=== PATIENT | female | born 1945 | race Two or more races ===

== ENCOUNTER 2018-08-08 09:16 | Emergency (ER) | payer OTHER ==
[~2018-08-08] VITALS: Ht 162.6 cm; Wt 104.3 kg
[2018-08-08] MEDS ORDERED: LOSARTAN-HCTZ1 EAC1 PO (09:45)
[2018-08-08] MEDS ORDERED: SINGULAIR10 MG PO (09:46)
[2018-08-08] MEDS ORDERED: XANAX2 MG PO (09:46)
[2018-08-08] MEDS ORDERED: VERAPAMIL HCL240 M1 PO (09:46)
[2018-08-08] MEDS ORDERED: SYNTHROID50 MCG PO (09:47)
[2018-08-08] MEDS ORDERED: GLYBURIDE MICRON3 MG PO (09:47)
[2018-08-08] MEDS ORDERED: PROTONIX20 MG PO (09:48)
[2018-08-08] MEDS ORDERED: NYSTATIN-TRIAMC15 GM TOP (09:48)
[2018-08-08] MEDS ORDERED: HYDROCORT-PRAMOX4 GM TOP (09:49)
[2018-08-08] MEDS ORDERED: PRAMOSONE 2.5%57 GM TOP (09:50)
== END 2018-08-08 15:07 | disposition home or self-care (01) ==
LOC: ER 09:16
DX: K64.4 Residual hemorrhoidal skin tags (principal)

== ENCOUNTER 2022-03-20 12:01 | Inpatient (IN) | payer OTHER ==
[~2022-03-20] VITALS: Ht 149.9 cm; Wt 81.6 kg
[~2022-03-20 12:01] MED LIST: GLYBURIDE MICRON3 MG PO; HYDROCORT-PRAMOX4 GM TOP; LOSARTAN-HCTZ1 EAC1 PO; NYSTATIN-TRIAMC15 GM TOP; PRAMOSONE 2.5%57 GM TOP; PROTONIX20 MG PO; SINGULAIR10 MG PO; SYNTHROID50 MCG PO; VERAPAMIL HCL240 M1 PO; XANAX2 MG PO
== END 2022-03-29 16:26 | disposition home or self-care (01) | DRG 690 ==
LOC: ER 12:01 → MEDJ 20:14
PROVIDERS: ADMIT Internal Medicine; ATTEND Internal Medicine
PROC: 30233N1 Transfusion of Nonautologous Red Blood Cells into Peripheral Vein, Percutaneous Approach (ICD-10-PCS; principal; 2022-03-23)
PROC: 0DJD8ZZ Inspection of Lower Intestinal Tract, Via Natural or Artificial Opening Endoscopic (ICD-10-PCS; 2022-03-28)
DX: N39.0 Urinary tract infection, site not specified (principal); N17.9 Acute kidney failure, unspecified; K64.2 Third degree hemorrhoids; D50.0 Iron deficiency anemia secondary to blood loss (chronic); D53.9 Nutritional anemia, unspecified; K57.30 Diverticulosis of large intestine without perforation or abscess without bleeding; I10 Essential (primary) hypertension; E11.40 Type 2 diabetes mellitus with diabetic neuropathy, unspecified; E11.65 Type 2 diabetes mellitus with hyperglycemia; E11.8 Type 2 diabetes mellitus with unspecified complications; E66.01 Morbid (severe) obesity due to excess calories; Z68.36 Body mass index [BMI] 36.0-36.9, adult; Z79.84 Long term (current) use of oral hypoglycemic drugs

== ENCOUNTER 2022-04-02 13:16 | Inpatient (IN) | payer OTHER ==
[~2022-04-02] VITALS: Ht 152.4 cm; Wt 86.2 kg
--- NOTE | 2022-04-02 13:34 | NUR ---
SE RECIEB PACIENTE EN AMBULANCIA LA MISMA SE ENCUENTRA ALERTA Y ORIENTADA X3 EN COMPANIA DE FAMILIAR QUIEN REFIER QUE DEENA A LA PACIENTE YA QUE DESDE LA MADRUGADA DE HOY SE ENCONTRABA PRESENTADO HIPOGLICEMIA. SE UBICA PACIENTE
[2022-04-02] MEDS ORDERED: GLIPIZIDE XL10 MG PO (13:39)
[2022-04-02] MEDS ORDERED: ALPRAZOLAM XR2 MG PO (13:40)
[2022-04-02] MEDS ORDERED: MONTELUKAST SODI4 M1 PO (13:40)
[2022-04-02] MEDS ORDERED: PROTONIX40 MG PO (13:40)
[2022-04-02] MEDS ORDERED: LEVO-T50 MCG PO (13:40)
[2022-04-02] MEDS ORDERED: GRALISE600 MG PO (13:41)
--- NOTE | 2022-04-02 14:35 | NUR ---
SE LE REALIZA DXT Y EKG A PACIENTE SE LE PRESENTA A DR HOYT QUIEN NO [place] MEDICO.
--- NOTE | 2022-04-02 16:01 | NUR ---
PTE EVALDUO POR DR. HOYT, SE ANA MUESTRA BAJO MEDIDAS ASEPTICAS, PTE REFIERE ENTENDER
== END 2022-04-06 11:09 | disposition home or self-care (01) | DRG 638 ==
LOC: ER 13:16 → SEC-K 22:48 → MEDI 04-03 02:09
PROVIDERS: ADMIT Internal Medicine; ATTEND Internal Medicine
PROC: 4A12X4Z Monitoring of Cardiac Electrical Activity, External Approach (ICD-10-PCS; principal; 2022-04-02)
PROC: 3E0F7SF Introduction of Other Gas into Respiratory Tract, Via Natural or Artificial Opening (ICD-10-PCS; 2022-04-02)
DX: E11.649 Type 2 diabetes mellitus with hypoglycemia without coma (principal); J44.1 Chronic obstructive pulmonary disease with (acute) exacerbation; J45.901 Unspecified asthma with (acute) exacerbation; K29.60 Other gastritis without bleeding; I10 Essential (primary) hypertension; E11.22 Type 2 diabetes mellitus with diabetic chronic kidney disease; N18.9 Chronic kidney disease, unspecified; E03.9 Hypothyroidism, unspecified; E66.01 Morbid (severe) obesity due to excess calories; E87.6 Hypokalemia; Z68.37 Body mass index [BMI] 37.0-37.9, adult; Z79.84 Long term (current) use of oral hypoglycemic drugs

== ENCOUNTER 2023-01-16 10:11 | Emergency (ER) | payer OTHER ==
[~2023-01-16] VITALS: Ht 149.9 cm; Wt 86.2 kg
[~2023-01-16 10:11] MED LIST changes: +ALPRAZOLAM XR2 MG PO; +GLIPIZIDE XL10 MG PO; +GRALISE600 MG PO; +LEVO-T50 MCG PO; +MONTELUKAST SODI4 M1 PO; +PROTONIX40 MG PO
[2023-01-16] MEDS ORDERED: VERELAN PM100 MG PO (10:19)
[2023-01-16] MEDS ORDERED: MICARDIS80 MG PO (10:20)
[2023-01-16 10:48] LABS: HEMATOCRIT 36.9 % (36.0-45.00); HEMOGLOBIN 11.9 g/dL (12.0-15.00); MEAN CELL VOLUME 79.3 fL (80.00-100.00); MEAN CORPUSCULAR HEMOGLOBIN 25.5 pg (27.00-32.0); MEAN CORPUSCULAR HGB CONC 32.2 g/dl (32.0-36.0); PLATELET COUNT 171 K/uL (150-450); RED BLOOD COUNT 4.65 M/uL (4.00-6.00)
[2023-01-16 11:41] LABS: RED CELL DISTRIBUTION WIDTH 17.4 % (11.5-14.5)
[2023-01-16 11:59] LABS: CALCIUM 9.8 mg/dL (8.5-10.1); CREATININE SERUM 1.1 mg/dL (0.55-1.02); GFR 48.04; POTASSIUM 4.35 mEq/L (3.5-5.1)
[2023-01-16 12:26] LABS: ABG PH 7.448 (7.35-7.45); ABG PO2 80.3 mmHg (80-100); ABG pCO2 41.5 mmHg (35-45); BASE EXCESS 3.7 mmol/l; BICARBONATE 28.1 mmol/l (23-25); SaO2 96.4 %; Tco2 29.4 mmol/l; o2 21 %; puncture site RADIAL RIGHT
[2023-01-16 12:27] LABS: allen test SATISFACTORY
== END 2023-01-16 16:23 | disposition home or self-care (01) ==
LOC: ER 10:11
PROVIDERS: General Practice
DX: J45.909 Unspecified asthma, uncomplicated (principal); Z20.822 Contact with and (suspected) exposure to COVID-19
CPT/HCPCS: 36415; 71045; 94640; 96365; 99283; J2930